=== PATIENT | female | born 1985 | race Native Hawaiian/Other Pacific Islander ===

== ENCOUNTER 2017-07-23 18:55 | Observation (INO) | payer MEDICAID, OTHER ==
[~2017-07-23 18:55] MED LIST: IBUP-2070 PO; PREN1TAB26 PO
== END 2017-07-23 20:50 | disposition home or self-care (01) ==
LOC: 4S 18:55
PROVIDERS: ADMIT Obstetrics & Gynecology; ATTEND Obstetrics & Gynecology
DX: O62.9 Abnormality of forces of labor, unspecified (principal); Z3A.27 27 weeks gestation of pregnancy
CPT/HCPCS: 59025; G0378

== ENCOUNTER 2017-08-19 11:30 | Observation (INO) | payer OTHER ==
[~2017-08-19] VITALS: Ht 160 cm; Wt 76.7 kg
[2017-08-19] MEDS ORDERED: ACET-66 PO (12:01)
[2017-08-19 12:03] VITALS: BP 124/75
== END 2017-08-19 12:55 | disposition home or self-care (01) ==
LOC: 4S 11:30
PROVIDERS: ADMIT Obstetrics & Gynecology; ATTEND Obstetrics & Gynecology
DX: O26.893 Other specified pregnancy related conditions, third trimester (principal); M54.9 Dorsalgia, unspecified; Z3A.31 31 weeks gestation of pregnancy
CPT/HCPCS: 59025; G0378

== ENCOUNTER 2017-09-26 08:12 | Observation (INO) | payer OTHER ==
[~2017-09-26] VITALS: Ht 160 cm; Wt 79.4 kg
[~2017-09-26 08:12] MED LIST changes: +ACET-66 PO; -IBUP-2070 PO
[2017-09-26 08:37] VITALS: BP 130/84
[2017-09-26 09:07] VITALS: BP 130/84
== END 2017-09-26 09:30 | disposition home or self-care (01) ==
LOC: 4S 08:12
PROVIDERS: ADMIT Obstetrics & Gynecology; ATTEND Obstetrics & Gynecology
DX: O26.893 Other specified pregnancy related conditions, third trimester (principal); R10.30 Lower abdominal pain, unspecified; O62.9 Abnormality of forces of labor, unspecified; R10.2 Pelvic and perineal pain; Z3A.36 36 weeks gestation of pregnancy
CPT/HCPCS: 59025; G0378

== ENCOUNTER 2017-10-12 21:21 | Observation (INO) | payer OTHER ==
[~2017-10-12] VITALS: Ht 160 cm; Wt 80.7 kg
[2017-10-12 21:42] VITALS: BP 125/80
[2017-10-12] MEDS ORDERED: INFLUENZA VIRUS VACCINE QVS 2017-18 (3YR+)/PF 60 MCG/0.5 ML SYRINGE IM ONE (22:00)
[2017-10-13] MEDS ORDERED: PREN1TAB80 PO (20:23)
== END 2017-10-13 03:58 | disposition home or self-care (01) ==
LOC: 4S 21:21
PROVIDERS: ADMIT Obstetrics & Gynecology; ATTEND Obstetrics & Gynecology
DX: O62.9 Abnormality of forces of labor, unspecified (principal); O42.92 Full-term premature rupture of membranes, unspecified as to length of time between rupture and onset of labor; O26.893 Other specified pregnancy related conditions, third trimester; R10.30 Lower abdominal pain, unspecified; M54.5 Low back pain; Z3A.39 39 weeks gestation of pregnancy
CPT/HCPCS: 36415; 59025; 89060; G0378 ×2

== ENCOUNTER 2017-10-13 19:12 | Inpatient (IN) | payer OTHER ==
[~2017-10-13] VITALS: Ht 160 cm; Wt 78.9 kg
[2017-10-13] MEDS ORDERED: RINGERS SOLUTION,LACTATED 1,000 ML IV PRN (20:16)
[2017-10-13] MEDS ORDERED: RINGERS SOLUTION,LACTATED 1,000 ML IV SCH (20:16)
[2017-10-13] MEDS ORDERED: PREN1TAB80 PO (20:23)
[2017-10-13] MEDS ORDERED: CITRIC ACID/SODIUM CITRATE 30 ML SOLUTION UDCUP PO PRN (20:30)
[2017-10-13] MEDS ORDERED: OXYGEN THERAPY IH SCH (20:30)
[2017-10-13] MEDS ORDERED: METOCLOPRAMIDE HCL 5 MG/ML 2 ML VIAL IVP PRN (20:30)
[2017-10-13] MEDS ORDERED: INFLUENZA VIRUS VACCINE QVS 2017-18 (3YR+)/PF 60 MCG/0.5 ML SYRINGE IM ONE (21:15)
[2017-10-14] MEDS ORDERED: OXYTOCIN 30 UNITS/LACT RINGERS 500 ML IV PRN (04:58)
[2017-10-14] MEDS ORDERED: VANCOMYCIN HCL 1 GM/D5% WATER 200 ML IV SCH (06:00)
[2017-10-14 07:52] LABS: BASOPHILS # (AUTO) 0.03 K/uL (0.00-0.20); BASOPHILS % (AUTO) 0.4 % (0.0-2.0); EOSINOPHILS # (AUTO) 0.12 K/uL (0.00-0.70); EOSINOPHILS % (AUTO) 1.59 % (1.0-6.0); LYMPHOCYTES # (AUTO) 2.3 K/uL (1.0-4.8); LYMPHOCYTES % (AUTO) 31.1 % (22.0-44.0); MEAN CORPUSCULAR HEMOGLOBIN 30.5 pg (26.0-34.0); MEAN CORPUSCULAR HGB CONC 33.3 G/dL (31.0-37.0); MEAN CORPUSCULAR VOLUME 92 fL (80-100); MONOCYTES # (AUTO) 0.6 K/uL (0.1-1.0); MONOCYTES % (AUTO) 8.6 % (2.0-9.0); NEUTROPHILS # (AUTO) 4.4 K/uL (1.8-7.7); NEUTROPHILS % (AUTO) 58.3 % (40.0-70.0); PLATELET COUNT (AUTO)-OB 169 K/uL (150-450); RED CELL DISTRIBUTION WIDTH 14.4 % (11.5-14.5)
[2017-10-14] MEDS ORDERED: SODIUM CHLORIDE ED ONE (08:58)
[2017-10-14] MEDS ORDERED: BUPIVACAINE HCL ED ONE (08:58)
[2017-10-14 11:41] LABS: APPEARANCE,URINE TURBID (CLEAR); BILIRUBIN,URINE NEGATIVE (NEGATIVE); GLUCOSE, URINE (UA) NEGATIVE (NEGATIVE); KETONES,URINE NEGATIVE (NEGATIVE); LEUKOCYTE ESTERASE ,URINE SMALL (NEGATIVE); NITRATE,URINE NEGATIVE (NEGATIVE); OCCULT BLOOD,URINE MODERATE (NEGATIVE); PH,URINE 6.5 (5.0-8.0); PROTEIN,URINE NEGATIVE (NEGATIVE)
[2017-10-14 12:09] LABS: BACTERIA,URINE Moderate /HPF (None Seen)
[2017-10-14 12:11] LABS: SQUAMOUS EPITHELIAL CELL,UR Moderate /LPF (None Seen)
[2017-10-14 12:12] LABS: CALCIUM OXALATE CRYSTALS,UR Few /LPF (None Seen); MUCUS,URINE Few LPF (None Seen); RENAL EPITHELIAL CELLS,URINE Few /LPF (None Seen)
[2017-10-14 12:14] LABS: AMORPHOUS SEDIMENT,UR Moderate /LPF (None Seen)
[2017-10-14] MEDS ORDERED: BENZOCAINE 20%/MENTHOL 56 GM SPRAY CANISTER TP PRN (13:00)
[2017-10-14] MEDS ORDERED: LANOLIN 7 GM OINTMENT TP PRN (13:00)
[2017-10-14] MEDS ORDERED: GLYCERIN/WITCH HAZEL LEAF 40 PADS JAR TP PRN (13:00)
[2017-10-14] MEDS: IBUPROFEN 800 MG TABLET PO SCH ×2 (14:45→21:56)
[2017-10-14] MEDS ORDERED: PNEUMOCOCCAL VACCINE POLYVALENT 0.5 ML VIAL [PPSV23] IM ONE (16:15)
[2017-10-14 19:43] VITALS: BP 134/71
[2017-10-14] MEDS: ACETAMINOPHEN/CODEINE 300-30 MG TABLET PO PRN ×2 (20:10→23:11)
[2017-10-14] MEDS: MAGNESIUM HYDROXIDE SUSPENSION 30 ML UDCUP PO SCH (21:55)
[2017-10-15] MEDS: ACETAMINOPHEN/CODEINE 300-30 MG TABLET PO PRN ×2 (03:50→09:19)
[2017-10-15] MEDS: IBUPROFEN 800 MG TABLET PO SCH ×2 (03:50→10:58)
[2017-10-15] MEDS: MAGNESIUM HYDROXIDE SUSPENSION 30 ML UDCUP PO SCH (09:18)
[2017-10-15] MEDS ORDERED: IBUP-2070 PO (13:50)
[2017-10-15] MEDS ORDERED: DSS100 PO (13:51)
[2017-10-15] MEDS ORDERED: FERR-82 PO (13:54)
== END 2017-10-15 18:00 | disposition home or self-care (01) | DRG 560 ==
LOC: INTOOBSV 19:12 → 4S 19:12 → OBSVTOIN 19:12
PROVIDERS: ADMIT Obstetrics & Gynecology; ATTEND Obstetrics & Gynecology
PROC: 3E0234Z Introduction of Serum, Toxoid and Vaccine into Muscle, Percutaneous Approach (ICD-10-PCS; 2017-10-13)
PROC: 10E0XZZ Delivery of Products of Conception, External Approach (ICD-10-PCS; principal; 2017-10-14)
PROC: 0HQ9XZZ Repair Perineum Skin, External Approach (ICD-10-PCS; 2017-10-14)
PROC: 3E0R3BZ Introduction of Anesthetic Agent into Spinal Canal, Percutaneous Approach (ICD-10-PCS; 2017-10-14)
PROC: 00HU33Z Insertion of Infusion Device into Spinal Canal, Percutaneous Approach (ICD-10-PCS; 2017-10-14)
PROC: 10907ZC Drainage of Amniotic Fluid, Therapeutic from Products of Conception, Via Natural or Artificial Opening (ICD-10-PCS; 2017-10-14)
DX: O69.81X0 Labor and delivery complicated by cord around neck, without compression, not applicable or unspecified (principal); O70.0 First degree perineal laceration during delivery; Z37.0 Single live birth; Z23 Encounter for immunization; Z3A.39 39 weeks gestation of pregnancy
CPT/HCPCS: 86850; 86900; 86901; 87086; J2590; J3370; J3490; J7120

== ENCOUNTER 2020-04-15 10:15 | Emergency (ER) | payer MEDICAID, OTHER ==
[~2020-04-15] VITALS: Ht 157.5 cm; Wt 80.9 kg
[~2020-04-15 10:15] MED LIST changes: -ACET-66 PO; +DSS100 PO; +FERR-82 PO; +IBUP-2070 PO
[2020-04-15 11:34] VITALS: BP 178/122
== END 2020-04-15 12:26 | disposition home or self-care (01) ==
LOC: EMS 10:18
DX: M54.5 Low back pain (principal); M62.838 Other muscle spasm; R03.0 Elevated blood-pressure reading, without diagnosis of hypertension; Z88.0 Allergy status to penicillin

== ENCOUNTER 2021-03-21 19:52 | Emergency (ER) | payer MEDICAID ==
[~2021-03-21] VITALS: Ht 157.5 cm; Wt 81.8 kg
[2021-03-21] MEDS ORDERED: CloNIDine HCL 0.1 MG TABLET PO ONE (22:00)
[2021-03-22 00:11] VITALS: BP 149/95
== END 2021-03-22 01:03 | disposition home or self-care (01) ==
LOC: EMS 19:52
DX: I10 Essential (primary) hypertension (principal); R51.9 Headache, unspecified; Z88.0 Allergy status to penicillin
CPT/HCPCS: 70450; 99284